=== PATIENT | female | born 1945 | race Native Hawaiian/Other Pacific Islander ===

== ENCOUNTER 2017-07-14 12:51 | Outpatient (CLI) | payer OTHER | END 2017-07-14 21:12 | disposition home or self-care (01) | LOC: RAD 12:51 | DX: M25.561 Pain in right knee (principal) ==

== ENCOUNTER 2017-07-28 12:08 | Outpatient (CLI) | payer OTHER | END 2017-07-28 19:20 | disposition home or self-care (01) | LOC: RAD 12:08 | DX: M54.16 Radiculopathy, lumbar region (principal) ==

== ENCOUNTER 2018-07-08 08:00 | Outpatient (CLI) | payer OTHER | END 2018-07-08 22:04 | disposition home or self-care (01) | LOC: NM 08:00 | DX: M25.561 Pain in right knee (principal) | CPT/HCPCS: A9561 ==